=== PATIENT | female | born 2000 | race Two or more races ===

== ENCOUNTER 2022-05-17 14:00 | Emergency (ER) | payer OTHER ==
[~2022-05-17] VITALS: Ht 172.7 cm; Wt 45.4 kg
[2022-05-17] MEDS ORDERED: VIENVA-28 TABL1 EACH PO (14:45)
== END 2022-05-17 17:27 | disposition home or self-care (01) ==
LOC: ER 14:00
DX: E16.2 Hypoglycemia, unspecified (principal)